=== PATIENT | female | born 1995 | race Caucasian/White ===

== ENCOUNTER 2019-03-10 14:03 | Emergency (ER) | payer SELFPAY ==
[2019-03-10] MEDS ORDERED: Bicillin LA 1.2 MILLION UNITS/2 ML SYRINGE ONE (14:31)
[2019-03-10] MEDS ORDERED: Ibuprofen 200 MG TAB ONE (14:31)
== END 2019-03-10 15:00 | disposition home or self-care (01) ==
LOC: SCSER 14:03
DX: J02.0 Streptococcal pharyngitis (principal)
CPT/HCPCS: 87430; 96372; J0561

== ENCOUNTER 2022-12-26 13:43 | Emergency (ER) | payer SELFPAY ==
[2022-12-26] MEDS ORDERED: Bicillin LA 1.2 MILLION UNITS/2 ML SYRINGE ONE (14:30)
[2022-12-26] MEDS ORDERED: Dexamethasone 10 MG/ML VIAL ONE (14:30)
[2022-12-26] MEDS ORDERED: Acetaminophen 500 MG TAB ONE ×2 (14:58→14:59)
== END 2022-12-26 15:04 | disposition home or self-care (01) ==
LOC: ERS 13:43
DX: J02.0 Streptococcal pharyngitis (principal)
CPT/HCPCS: 96372; 99283; J0561; J1100

== ENCOUNTER 2022-12-28 08:07 | Emergency (ER) | payer SELFPAY | END 2022-12-28 08:40 | disposition home or self-care (01) | LOC: ERS 08:07 | DX: J02.0 Streptococcal pharyngitis (principal) | CPT/HCPCS: 99283 ==